=== PATIENT | male | born 1995 | race Caucasian/White ===

== ENCOUNTER 2019-12-06 08:25 | Emergency (ER) | payer OTHER ==
[~2019-12-06] VITALS: Ht 175.3 cm; Wt 72.7 kg
[2019-12-06 08:32] VITALS: BP 115/80; TEMP 98.3
[2019-12-06 09:12] VITALS: PULSE 84
== END 2019-12-06 09:12 | disposition home or self-care (01) ==
LOC: COL.ER 08:25
DX: S62.632A Displaced fracture of distal phalanx of right middle finger, initial encounter for closed fracture (principal); W20.8XXA Other cause of strike by thrown, projected or falling object, initial encounter; Y92.59 Other trade areas as the place of occurrence of the external cause; Y99.1 Military activity

== ENCOUNTER 2019-12-31 15:55 | Emergency (ER) | payer OTHER ==
[~2019-12-31] VITALS: Ht 175.3 cm; Wt 72.7 kg
[2019-12-31 16:29] VITALS: BP 125/86; TEMP 97.9
[2019-12-31 19:03] VITALS: PULSE 88
== END 2019-12-31 19:05 | disposition home or self-care (01) ==
LOC: COL.ER 15:55
DX: S06.9X9A Unspecified intracranial injury with loss of consciousness of unspecified duration, initial encounter (principal); R40.2412 Glasgow coma scale score 13-15, at arrival to emergency department; W22.8XXA Striking against or struck by other objects, initial encounter; Y93.74 Activity, frisbee